=== PATIENT | female | born 1940 | race Asian ===

== ENCOUNTER 2020-12-22 17:06 | Emergency (ER) | payer OTHER ==
[~2020-12-22] VITALS: Ht 152.4 cm; Wt 54.4 kg
[2020-12-22 18:08] VITALS: BP 176/89; TEMP 98.4
== END 2020-12-22 18:20 | disposition home or self-care (01) ==
LOC: ED 17:06
PROC: 2W3MX1Z Immobilization of Left Lower Extremity using Splint (ICD-10-PCS; principal; 2020-12-22)
DX: M17.12 Unilateral primary osteoarthritis, left knee (principal); M25.562 Pain in left knee; G62.9 Polyneuropathy, unspecified; W18.39XA Other fall on same level, initial encounter; Y92.89 Other specified places as the place of occurrence of the external cause
CPT/HCPCS: 96372; 99283; J1885; J2930

== ENCOUNTER 2021-01-23 17:36 | Emergency (ER) | payer OTHER ==
[~2021-01-23] VITALS: Ht 152.4 cm; Wt 54.4 kg
[2021-01-23 17:36] VITALS: TEMP 98
[2021-01-23 18:45] LABS: PLATELET COUNT 124 K/uL (152-353)
[2021-01-23 18:59] LABS: POTASSIUM 4.1 mmol/L (3.6-5.2)
[2021-01-23 23:39] VITALS: BP 113/71
[2021-01-25] MEDS ORDERED: METF500T PO (20:53)
[2021-01-25] MEDS ORDERED: ASPIRIN 81 LOW81 MG PO (20:53)
[2021-01-25] MEDS ORDERED: ZESTRIL30 MG PO (20:54)
[2021-01-25] MEDS ORDERED: AMLODIPINE BESYLATE PO (20:56)
[2021-01-25] MEDS ORDERED: MOBIC7.5 M1 PO (20:56)
== END 2021-01-24 03:33 | disposition home or self-care (01) ==
LOC: ED 17:36
PROVIDERS: Emergency Medicine Emergency Medical Services
DX: S80.02XA Contusion of left knee, initial encounter (principal); M10.9 Gout, unspecified; W18.39XA Other fall on same level, initial encounter; Y92.89 Other specified places as the place of occurrence of the external cause
CPT/HCPCS: 36415; 80053; 84550; 85027; 96360; 99284

== ENCOUNTER 2021-01-25 10:21 | Inpatient (IN) | payer OTHER ==
[~2021-01-25] VITALS: Ht 162.6 cm; Wt 48.2 kg
[2021-01-25] VITALS (11 sets, daily range): BP systolic 142–165; BP diastolic 65–82; TEMP 97.8–98.5; Ht 162.6 cm; Wt 48.2 kg
[2021-01-25 11:00] LABS: PLATELET COUNT 109 K/uL (152-353)
[2021-01-25 11:12] LABS: POTASSIUM 4.1 mmol/L (3.6-5.2); SODIUM 144 mmol/L (136-145)
[2021-01-25 11:15] LABS: PARTIAL THROMBOPLASTIN TIME 23.9 SECONDS (24.5-33.6)
[2021-01-25] MEDS ORDERED: ASPIRIN 81 LOW81 MG PO (20:53)
[2021-01-25] MEDS ORDERED: METF500T PO (20:53)
[2021-01-25] MEDS ORDERED: ZESTRIL30 MG PO (20:54)
[2021-01-25] MEDS ORDERED: AMLODIPINE BESYLATE PO (20:56)
[2021-01-25] MEDS ORDERED: MOBIC7.5 M1 PO (20:56)
[2021-01-26] VITALS: BP 158/76; TEMP 97.2
[2021-01-26 04:00] VITALS: BP 167/78; TEMP 97.8
[2021-01-26 05:22] LABS: PLATELET COUNT 95 K/uL (152-353)
[2021-01-26 05:28] LABS: POTASSIUM 3.4 mmol/L (3.6-5.2)
[2021-01-26 08:00] VITALS: BP 161/72; TEMP 97.6
[2021-01-26 12:00] VITALS: BP 160/88; TEMP 97.7
[2021-01-26 16:00] VITALS: BP 182/99; TEMP 97.9
[2021-01-26 20:00] VITALS: BP 187/89; TEMP 98
[2021-01-27] VITALS: BP 178/95; TEMP 97.7
[2021-01-27 04:00] VITALS: BP 169/77; TEMP 97.9
[2021-01-27 07:00] LABS: PLATELET COUNT 90 K/uL (152-353)
[2021-01-27 08:00] VITALS: BP 165/77; TEMP 97.5
[2021-01-27 11:07] LABS: POTASSIUM 2.9 mmol/L (3.6-5.2)
[2021-01-27 12:00] VITALS: BP 124/75; TEMP 98.3
[2021-01-27 16:00] VITALS: BP 162/75; TEMP 97.6
[2021-01-27 20:00] VITALS: BP 165/79; TEMP 98.4
[2021-01-28 00:08] VITALS: BP 161/73; TEMP 98.8
[2021-01-28 04:00] VITALS: BP 150/75; TEMP 98.2
[2021-01-28 06:41] LABS: PLATELET COUNT 78 K/uL (152-353)
[2021-01-28 08:00] VITALS: BP 171/89; TEMP 97.4
[2021-01-28 12:00] VITALS: BP 191/94; TEMP 97.4
[2021-01-28 16:00] VITALS: BP 161/69; TEMP 97.5
[2021-01-28 20:00] VITALS: BP 168/79; TEMP 98.3
[2021-01-29] VITALS (7 sets, daily range): BP systolic 102–173; BP diastolic 58–81; TEMP 96.7–98.6
[2021-01-29 04:59] LABS: PLATELET COUNT 83 K/uL (152-353)
[2021-01-29 05:11] LABS: POTASSIUM 3.1 mmol/L (3.6-5.2)
[2021-01-30 04:21] VITALS: BP 189/76; TEMP 97.1
[2021-01-30 04:40] LABS: POTASSIUM 3.3 mmol/L (3.6-5.2)
[2021-01-30 06:05] LABS: PLATELET COUNT 61 K/uL (152-353)
[2021-01-30 08:00] VITALS: BP 147/64; TEMP 97.7
[2021-01-30 12:00] VITALS: BP 152/83; TEMP 97.4
[2021-01-30 16:00] VITALS: BP 132/59; TEMP 97.4
[2021-01-30 17:49] LABS: POTASSIUM 3.2 mmol/L (3.6-5.2)
[2021-01-30 20:00] VITALS: BP 131/60; TEMP 97.1
[2021-01-31] VITALS (7 sets, daily range): BP systolic 100–150; BP diastolic 61–78; TEMP 97.2–99
[2021-01-31 04:42] LABS: PLATELET COUNT 78 K/uL (152-353)
[2021-01-31 04:57] LABS: POTASSIUM 3.4 mmol/L (3.6-5.2)
[2021-01-31 11:52] LABS: PLATELET COUNT 78 K/uL (152-353)
[2021-01-31 11:56] LABS: POTASSIUM 3.3 mmol/L (3.6-5.2)
[2021-02-01 04:00] VITALS: BP 167/66; TEMP 98.8
[2021-02-01 04:41] LABS: POTASSIUM 3.9 mmol/L (3.6-5.2)
[2021-02-01 04:43] LABS: PLATELET COUNT 73 K/uL (152-353)
[2021-02-01 08:00] VITALS: BP 177/70; TEMP 97.2
[2021-02-01 12:00] VITALS: BP 167/83; TEMP 98.5
[2021-02-01 16:00] VITALS: BP 170/74; TEMP 98.5
[2021-02-01 20:00] VITALS: BP 141/66; TEMP 97.9
[2021-02-02] VITALS: BP 147/65; TEMP 97.8
[2021-02-02 04:00] VITALS: BP 138/64; TEMP 98
[2021-02-02 05:05] LABS: PLATELET COUNT 103 K/uL (152-353)
[2021-02-02 08:00] VITALS: BP 184/79; TEMP 98.2
[2021-02-02 11:06] LABS: POTASSIUM 3.9 mmol/L (3.6-5.2)
[2021-02-02 12:00] VITALS: BP 159/75; TEMP 98.1
[2021-02-02 16:00] VITALS: BP 140/65; TEMP 98.3
[2021-02-02 20:00] VITALS: BP 134/92; TEMP 98.6
[2021-02-03] VITALS: BP 157/82; TEMP 97.5
[2021-02-03 04:00] VITALS: BP 145/72; TEMP 97.9
[2021-02-03 05:33] LABS: PLATELET COUNT 104 K/uL (152-353)
[2021-02-03 05:56] LABS: POTASSIUM 3.5 mmol/L (3.6-5.2)
[2021-02-03 08:00] VITALS: BP 162/126; TEMP 97.4
[2021-02-03 12:00] VITALS: BP 164/85; TEMP 97.5
[2021-02-03 16:00] VITALS: BP 154/93; TEMP 98.6
[2021-02-03 20:00] VITALS: BP 169/86; TEMP 98.1
[2021-02-04 00:18] VITALS: BP 165/87; TEMP 97.2
[2021-02-04 04:26] VITALS: BP 150/85; TEMP 97.4
[2021-02-04 05:44] LABS: PLATELET COUNT 127 K/uL (152-353)
[2021-02-04 08:00] VITALS: BP 158/91; TEMP 97.9
== END 2021-02-04 18:15 | DRG 682 ==
LOC: ED 10:21 → MED/SURG 12:30
PROVIDERS: Internal Medicine; ADMIT Family Medicine; ATTEND Internal Medicine Endocrinology, Diabetes & Metabolism
DX: N17.8 Other acute kidney failure (principal); G92 Toxic encephalopathy; N39.0 Urinary tract infection, site not specified; E83.52 Hypercalcemia; I10 Essential (primary) hypertension; E11.9 Type 2 diabetes mellitus without complications; M81.8 Other osteoporosis without current pathological fracture; E87.6 Hypokalemia; E83.42 Hypomagnesemia; R13.19 Other dysphagia; E78.49 Other hyperlipidemia; M10.9 Gout, unspecified; E87.5 Hyperkalemia; D69.6 Thrombocytopenia, unspecified; D64.89 Other specified anemias; B96.20 Unspecified Escherichia coli [E. coli] as the cause of diseases classified elsewhere
CPT/HCPCS: 36415; 51702; 80048; 80053; 81000; 82306; 82310; 82550; 83735; 83970; 84100; 84165; 84166; 84443; 84484; 84550; 85007; 85027; 85379; 85610; 85730; 87077; 87086; 87088; 87186; 87635; 93005; 96360; 96374; 99284; A9561; J0360; J1100; J1650; J1815; J1940; J1956; J2270; J3475; J3480; J3489; J3490; U0003